=== PATIENT | female | born 1935 | race Caucasian/White ===

== ENCOUNTER 2017-01-16 09:47 | Outpatient (CLI) | payer OTHER, MEDICARE ==
[~2017-01-16 09:47] MED LIST: AMLODIPINE BESYL5 MG PO; ASPIRIN EC81 MG PO; ATIVAN1 MG PO; CARVEDILOL25 MG PO; FUROSEMIDE40 MG PO; LEVOTHYROXINE75 MCG PO; LISINOPRIL10 MG PO; METFORMIN HCL500 MG PO; POTASSIUM CHLO10 ME2 PO
--- NOTE | 2017-01-16 10:49 | DIAGNOSTIC IMAGING REPORT ---
PROCEDURE: MG BILATERAL SCREENING W/CAD INDICATION: SCREENING TECHNIQUE: Bilateral CC and MLO digital views. COMPARISON: Compared to 01/29/2015, 08/19/2013, and 07/16/2012. FINDINGS: Computer-aided detection applied. Mildly dense with a few dystrophic calcifications. No change. IMPRESSION: 1. Negative mammogram. RESULT CODE: 1- Negative. A. A negative report should not delay biopsy if a dominant or clinically suspicious mass is present. 10-15% of cancers are not identified by x-ray. B. A negative report may reinforce clinical impression. C. Adenosis and dense breasts may obscure an underlying neoplasm. D. False positive reports average 6-10%. E.. A yearly screening mammogram is recommended. A reminder letter will be scheduled.
== END 2017-01-16 23:00 ==
LOC: MAM SRH 09:47
DX: Z12.31 Encounter for screening mammogram for malignant neoplasm of breast (principal)